=== PATIENT | male | born 1970 | race Caucasian/White ===

== ENCOUNTER → 2017-11-20 07:25 | Outpatient (CLI) | payer MEDICAID, SELFPAY | PROVIDERS: Visit Provider Psychiatry & Neurology Neurology | DX: R56.9 Unspecified convulsions (principal) | CPT/HCPCS: 70553; A9585 ==

== ENCOUNTER → 2017-11-22 07:20 | Outpatient (CLI) | payer MEDICAID, SELFPAY ==
--- NOTE | 2017-11-24 07:17 | EEG ---
- Electroencephalogram Date of service 11/22/2017 History EEG is being done in this 47 yr M to rule out seizures EEG Description: This is an 18 channel EEG with 10-20 lead placement system. Bipolar montages, Referential and Circumferential montages were reviewed. Photic stimulation and Hyperventilation were performed. The posterior dominant rhythm is 7 HZ synchronous, symmetric, reacting to eye opening and closing. Photo stimulation elicited normal driving response but no abnormal photoparoxysmal response, Hyperventilation did not elicit any abnormal photoparoxysmal response. Drowsiness was identified. There is generalized background slowing in the theta frequency noted. There was no epileptiform discharges or electrographic seizures noted during this recording. EEG Interpretation This is an abnormal EEG due to mild generalized slowing. This may be seen in generalized cerebral dysfunction like metabolic/toxic encephalopathy. Clinical correlation is advised. There is no epileptiform discharges or electrographic seizures noted during the record.
== END ==
PROVIDERS: Visit Provider Psychiatry & Neurology Neurology
DX: R56.9 Unspecified convulsions (principal)
CPT/HCPCS: 95819

== ENCOUNTER 2018-07-25 03:59 | Emergency (ER) | payer MEDICAID, SELFPAY ==
[2018-07-25 03:59] VITALS: BP 144/95; PULSE 86; RESP 12; TEMP 36.9; O2SAT 100; BMI 21.0
[2018-07-25] MEDS: Diphth,Pertuss(Acell),Tet Vac 0.5 ML Vial IM (04:21)
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
[2018-07-25 05:35] VITALS: RESP 16
[2018-07-25 05:45] VITALS: BP 139/88; PULSE 69; RESP 16; O2SAT 100
== END 2018-07-25 05:46 | disposition home or self-care (01) ==
PROVIDERS: Emergency Provider Emergency Medicine; Family Provider Family Medicine; PCP Family Medicine
DX: S21.112A Laceration without foreign body of left front wall of thorax without penetration into thoracic cavity, initial encounter (principal); W45.8XXA Other foreign body or object entering through skin, initial encounter; Y93.89 Activity, other specified; Y92.89 Other specified places as the place of occurrence of the external cause; Y99.9 Unspecified external cause status; Z72.0 Tobacco use
CPT/HCPCS: 12001; 71046; 90715; 99285

== ENCOUNTER 2018-08-04 10:02 | Emergency (ER) | payer MEDICAID, SELFPAY ==
[2018-08-04 10:03] VITALS: BP 158/87; PULSE 68; RESP 18; TEMP 36.6; O2SAT 100; BMI 21.9
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
--- NOTE | 2018-08-04 10:26 | ED.DEP ---
ED Disposition - Plan for ED Patient: Instructions: ED Wound Check Sutr Remove No Infec Referrals: Anselmo Henry MD [Primary Care Provider] -
== END 2018-08-04 10:44 | disposition home or self-care (01) ==
LOC: ED 10:25
PROVIDERS: Emergency Provider Emergency Medicine; Family Provider Family Medicine; PCP Family Medicine
DX: Z48.02 Encounter for removal of sutures (principal); Z72.0 Tobacco use
CPT/HCPCS: 99282

== ENCOUNTER 2019-11-16 07:26 | Emergency (ER) | payer MEDICAID, SELFPAY ==
[2019-11-16 07:27] VITALS: BP 97/80; PULSE 89; RESP 18; TEMP 36.7; O2SAT 97; BMI 20.3
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
[2019-11-16] MEDS: Silver Nitrate (BKC) 1 EACH TOPICAL (07:58)
== END 2019-11-16 08:12 | disposition home or self-care (01) ==
LOC: ED 08:07
PROVIDERS: Emergency Provider Emergency Medicine; PCP Family Medicine
DX: S61.203A Unspecified open wound of left middle finger without damage to nail, initial encounter (principal); F17.200 Nicotine dependence, unspecified, uncomplicated; W26.8XXA Contact with other sharp object(s), not elsewhere classified, initial encounter
CPT/HCPCS: 99284

== ENCOUNTER → 2020-01-06 | Outpatient (CLI) | payer MEDICAID, SELFPAY | END | disposition home or self-care (01) | LOC: MTDU 10:29 | PROVIDERS: PCP Family Medicine; Referring Provider Nurse Practitioner Family; Visit Provider Nurse Practitioner Family | DX: R05 Cough (principal); R06.02 Shortness of breath | CPT/HCPCS: 87635; C9803; U0003 ==

== ENCOUNTER 2020-08-18 23:04 | Emergency (ER) | payer MEDICAID, SELFPAY ==
[2020-06-07 10:17] VITALS: BMI 24.0
[2020-08-18 23:05] VITALS: BP 136/102; PULSE 106; RESP 18; TEMP 36.8; O2SAT 100; BMI 24.8
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
[2020-08-18 23:29] VITALS: O2SAT 100
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
[2020-08-18] MEDS: 0.9% Normal Saline 1,000 ML 1000 ML IV (23:36)
[2020-08-18 23:42] LABS: Absolute Lymphocyte Count 1.46 X10^3/uL (0.83-4.51); Absolute Neutrophil Count 8.1 X10^3/uL (2.0-7.7); Basophil# 0.07 X10^3/uL; Basophil% 0.7 % (0-1); Eosinophil# 0.11 X10^3/uL; Hematocrit 45.8 % (40-54); Hemoglobin 15.6 g/dL (13.0-16.5); Lymphocyte # 1.46 X10^3/ul (0.83-4.51); Lymphocyte % 13.6 % (19-41); Mean Corp Hgb Conc 34.1 g/dL (32-36); Mean Corpuscular Hgb 31.7 pg (27.0-32.0); Mean Corpuscular Volume 93.1 fL (80-94); Mean Platelet Vol. 10.6 fl (6.2-12.0); Monocyte% 8.4 % (0-10); NRBC Flagged by Analyzer 0 % (0-5); Neutrophil # 8.13 X10^3/uL (2.7-7.7); Neutrophil % 75.8 % (47-70); Platelet Count 325 K/mm3 (150-450); RBC Distribution Width CV 13.1 % (11.6-14.6); Red Blood Count 4.92 M/mm3 (4.6-6.2); White Blood Count 10.7 K/mm3 (4.4-11.0)
[2020-08-18 23:48] LABS: Partial Thromboplast Time 28.1 Seconds (24.1-36.2); Prothrombin Time (Protime)PT. 12.2 SECONDS (11.7-14.9)
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
[2020-08-18 23:56] LABS: ALB/GLOB Ratio 1.1 RATIO (0.9-2.4); AST(SGOT) 77 U/L (15-37); Alanine Aminotransfer ALT/SGPT 41 U/L (16-61); Albumin, Serum 4.8 g/dL (3.2-5.0); Alkaline Phosphatase 78 U/L (45-117); Anion Gap 9 (5-15); BUN 6 mg/dL (7-18); BUN/Creat Ratio 5.6 RATIO (10-20); Calcium,Total 8.7 mg/dL (8.5-10.1); Chloride 90 mmol/L (98-107); Creatinine, Serum 1.07 mg/dL (0.70-1.30); EST Glomerular Filtration Rate 78 mL/min (>60); Est Glom Filt Rate - Afr Amer 94 mL/min (>60); Estimated Creatinine Clearance 77.22 ml/min; Globulin 4.2 g/dL (2.2-4.2); Glucose 77 mg/dL (74-106); Potassium 3.1 mmol/L (3.5-5.1); Sodium Level 124 mmol/L (136-145)
[2020-08-19 00:15] VITALS: BP 123/80; PULSE 91; RESP 18; O2SAT 99
[2020-08-19 00:28] LABS: Amphetamine Urine VISTA POSITIVE (<1000 ng/mL); Barbiturate Urine VISTA NEGATIVE (< 200 ng/mL); Benzodiazepine Urine VISTA NEGATIVE (< 200 ng/mL); Cocaine Urine VISTA NEGATIVE (< 300 ng/mL); Ecstacy Urine VISTA NEGATIVE (< 500 ng/mL); Methadone Urine VISTA NEGATIVE (< 300 ng/mL); PCP Urine VISTA NEGATIVE (< 25 ng/mL); THC Urine VISTA NEGATIVE (< 50 ng/mL); Vista UDS pH Range 5
[2020-08-19 01:27] VITALS: BP 122/85; PULSE 106; RESP 16; O2SAT 99
[2020-08-19] MEDS: Lidocaine 1% (20 ml mdv) 20 ML Vial INFILT (01:34)
[2020-08-19] MEDS: Cefazolin 1 GM/50 ML BAG IV (01:34)
[2020-08-19 03:09] VITALS: BP 115/80; PULSE 102; RESP 18; O2SAT 99
[2020-08-19] MEDS: Lidocaine 1% /Epi 1:100 (20ml) 20 ML Vial INFILT (04:13)
[2020-08-19 04:26] VITALS: BP 110/76; PULSE 98; RESP 18; O2SAT 99
== END 2020-08-19 04:30 | disposition home or self-care (01) ==
PROVIDERS: Emergency Provider Emergency Medicine; PCP Family Medicine
DX: S31.119A Laceration without foreign body of abdominal wall, unspecified quadrant without penetration into peritoneal cavity, initial encounter (principal); F17.200 Nicotine dependence, unspecified, uncomplicated; F10.129 Alcohol abuse with intoxication, unspecified; X99.1XXA Assault by knife, initial encounter; Y93.89 Activity, other specified; Y92.89 Other specified places as the place of occurrence of the external cause; Y99.8 Other external cause status
CPT/HCPCS: 12002; 71045; 71260; 74177; 80053; 80307; 82077; 85025; 85610; 85730; 96361; 96365; 99285; J7050; Q9967

== ENCOUNTER 2020-08-29 07:55 | Emergency (ER) | payer MEDICAID, SELFPAY ==
[2020-08-29 07:56] VITALS: BP 129/73; PULSE 90; RESP 18; TEMP 36.6; O2SAT 99; BMI 22.8
[2020-08-29 07:58] VITALS: BP 129/73; PULSE 90; RESP 18; TEMP 36.6; O2SAT 99
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
== END 2020-08-29 08:48 | disposition home or self-care (01) ==
PROVIDERS: Emergency Provider Emergency Medicine; PCP Family Medicine
DX: S31.119D Laceration without foreign body of abdominal wall, unspecified quadrant without penetration into peritoneal cavity, subsequent encounter (principal); F17.200 Nicotine dependence, unspecified, uncomplicated; Z48.02 Encounter for removal of sutures; W45.8XXD Other foreign body or object entering through skin, subsequent encounter
CPT/HCPCS: 99282

== ENCOUNTER → 2020-09-08 11:03 | Outpatient (CLI) | payer MEDICAID, SELFPAY ==
[2020-08-29 07:56] VITALS: BMI 22.8
[2020-09-08 12:08] LABS: Hematocrit 40.2 % (40-54); Hemoglobin 13.6 g/dL (13.0-16.5); Mean Corp Hgb Conc 33.8 g/dL (32-36); Mean Corpuscular Hgb 32.1 pg (27.0-32.0); Mean Corpuscular Volume 94.8 fL (80-94); Platelet Count 242 K/mm3 (150-450); RBC Distribution Width CV 12.7 % (11.6-14.6); RBC Distribution Width SD 44.2 fl (35.1-43.9); Red Blood Count 4.24 M/mm3 (4.6-6.2); White Blood Count 8.7 K/mm3 (4.4-11.0)
[2020-09-08 12:40] LABS: ALB/GLOB Ratio 0.9 RATIO (0.9-2.4); AST(SGOT) 51 U/L (15-37); Alanine Aminotransfer ALT/SGPT 40 U/L (16-61); Albumin, Serum 3.7 g/dL (3.2-5.0); Alkaline Phosphatase 77 U/L (45-117); Anion Gap 10 (5-15); BUN 7 mg/dL (7-18); BUN/Creat Ratio 7.2 RATIO (10-20); Chloride 95 mmol/L (98-107); Creatinine, Serum 0.97 mg/dL (0.70-1.30); EST Glomerular Filtration Rate 87 mL/min (>60); Est Glom Filt Rate - Afr Amer 105 mL/min (>60); Globulin 4.1 g/dL (2.2-4.2); Glucose 121 mg/dL (74-106); Potassium 3.8 mmol/L (3.5-5.1); Protein, Total 7.8 g/dL (6.4-8.2); Sodium Level 132 mmol/L (136-145)
[2020-09-12 16:22] LABS: KEPPRA (LEVETIRACETAM) 27.2 ug/mL (10.0-40.0)
== END ==
PROVIDERS: Nurse Practitioner Family; PCP Family Medicine; Referring Provider Psychiatry & Neurology Neurology; Visit Provider Psychiatry & Neurology Neurology
DX: G40.909 Epilepsy, unspecified, not intractable, without status epilepticus (principal)
CPT/HCPCS: 36415; 80053; 80177; 82140; 85027

== ENCOUNTER 2021-04-10 05:53 | Outpatient (CLI) | payer MEDICAID, SELFPAY ==
--- NOTE | 2021-04-10 06:32 | TELEMED_ITS ---
[facility] Tele[facility] has confirmed receipt of a request for visit. This document confirms receipt of the order initiating the consult. To find the results of the consultation, please view the patient's reports for the scanned Telemed Consult.
== END 2021-04-10 23:59 | disposition home or self-care (01) ==
PROVIDERS: PCP Family Medicine; Referring Provider Nurse Practitioner Family; Visit Provider Nurse Practitioner Family
DX: G40.909 Epilepsy, unspecified, not intractable, without status epilepticus (principal)
CPT/HCPCS: 95819

== ENCOUNTER 2021-05-04 10:43 | Outpatient (CLI) | payer MEDICAID, SELFPAY ==
[2021-05-04 12:29] LABS: Hematocrit 47.1 % (40-54); Hemoglobin 15.6 g/dL (13.0-16.5); Mean Corp Hgb Conc 33.1 g/dL (32-36); Mean Corpuscular Hgb 31.8 pg (27.0-32.0); Mean Corpuscular Volume 95.9 fL (80-94); Mean Platelet Vol. 11.8 fl (6.2-12.0); Platelet Count 227 K/mm3 (150-450); RBC Distribution Width CV 12.6 % (11.6-14.6); RBC Distribution Width SD 45.1 fl (35.1-43.9); Red Blood Count 4.91 M/mm3 (4.6-6.2)
[2021-05-04 13:19] LABS: ALB/GLOB Ratio 0.9 RATIO (0.9-2.4); AST(SGOT) 19 U/L (15-37); Alanine Aminotransfer ALT/SGPT 17 U/L (16-61); Albumin, Serum 3.7 g/dL (3.2-5.0); Alkaline Phosphatase 65 U/L (45-117); Anion Gap 6 (5-15); BUN 14 mg/dL (7-18); BUN/Creat Ratio 12.3 RATIO (10-20); Chloride 101 mmol/L (98-107); Creatinine, Serum 1.14 mg/dL (0.70-1.30); EST Glomerular Filtration Rate 72 mL/min (>60); Est Glom Filt Rate - Afr Amer 87 mL/min (>60); Globulin 3.9 g/dL (2.2-4.2); Glucose 102 mg/dL (74-106); Magnesium 2.1 mg/dL (1.6-2.6); Potassium 4.3 mmol/L (3.5-5.1); Protein, Total 7.6 g/dL (6.4-8.2); Sodium Level 136 mmol/L (136-145)
[2021-05-09 10:14] LABS: KEPPRA (LEVETIRACETAM) 6.5 ug/mL (10.0-40.0)
== END 2021-05-04 23:59 | disposition short-term general hospital (02) ==
PROVIDERS: PCP Family Medicine; Referring Provider Nurse Practitioner Family; Visit Provider Nurse Practitioner Family
DX: G40.909 Epilepsy, unspecified, not intractable, without status epilepticus (principal)
CPT/HCPCS: 36415; 80053; 80177; 82140; 83735; 85027

== ENCOUNTER → 2021-09-21 | Outpatient (CLI) | payer MEDICAID, SELFPAY ==
[2021-09-26 14:59] LABS: KEPPRA (LEVETIRACETAM) <1.0 ug/mL (10.0-40.0)
== END | disposition home or self-care (01) ==
LOC: MTLAB 08:07
PROVIDERS: PCP Family Medicine; Referring Provider Nurse Practitioner Family; Visit Provider Nurse Practitioner Family
DX: G40.909 Epilepsy, unspecified, not intractable, without status epilepticus (principal)
CPT/HCPCS: 36415; 80177; 82140

== ENCOUNTER → 2021-10-31 | Outpatient (CLI) | payer MEDICAID, SELFPAY ==
[2021-11-03 19:52] LABS: KEPPRA (LEVETIRACETAM) 5.5 ug/mL (10.0-40.0)
== END | disposition home or self-care (01) ==
LOC: MTLAB 08:51
PROVIDERS: PCP Family Medicine; Referring Provider Nurse Practitioner Family; Visit Provider Nurse Practitioner Family
DX: G40.909 Epilepsy, unspecified, not intractable, without status epilepticus (principal)
CPT/HCPCS: 36415; 80177; 82140

== ENCOUNTER 2025-01-12 11:29 | Emergency (ER) | payer SELFPAY ==
[2025-01-12 11:30] VITALS: BP 152/114; PULSE 150; RESP 18; TEMP 36.5; O2SAT 96; BMI 21.6
--- NOTE | 2025-01-12 11:42 | ED.VIS.GI ---
HPI HPI - GI History of Present Illness Chief Complaint: GI Bleed Narrative Narrative: 54-year-old male presents with reported coffee-ground emesis, with perhaps some bright red blood/mucus in his vomit since Saturday. He states his symptoms started approximately 4 days ago. He did admit to drinking alcohol on Saturday. He states he does not take any blood thinners. He states he has a seizure disorder, but does not see a specialist any longer because he does not need to. He denies any other bleeding diathesis, no black stool. He states whenever he tries to drink even water, he will vomit. [facility] Medical History Unspecified intracranial injury with loss of consciousness of unspecified duration, sequela Epilepsy, unspecified, not intractable, without status epilepticus Seizure Home Medications ?Medication ?Instructions ?Recorded ?Last Taken ?Type levetiracetam 1,000 mg tablet 1,000 mg PO BID #60 tabs 11/23/22 Unknown Rx Allergy/AdvReac Type Severity Reaction Status Date / Time No Known Allergies Allergy Verified 01/12/25 11:34 Family History Father Heart disease Mother Diabetes Surgical History No history of previous surgery Social History Smoking Status: Current every day smoker tobacco type: cigarettes Tobacco: How many years used: 5 Electronic Cigarette Use: not used second hand exposure: No alcohol intake: current alcohol intake frequency: a few times a week Alcohol type: beer substance use type: does not use seatbelt use: always ROS ROS ED ROS Narrative Review of systems positive for nausea and vomiting, coffee-ground emesis, epigastric abdominal pain. No black stool. Does not take blood thinners. Does admit to drinking alcohol occasionally. EXAM Physical Exam Narrative Exam Narrative: Afebrile. Vital signs noted. Nontoxic-appearing. Cardiovascular examination reveals positive tachycardia. Lungs are clear to auscultation bilaterally. Abdomen is soft with tenderness in the epigastrium. Negative Sanchez sign. No rebound or guarding. Positive bowel sounds neurological examination nonfocal, nonlateralizing. Ambulatory in ED. Able to transfer from standing to cot. Const Vital Signs: 01/12/25 11:30 01/12/25 12:21 01/12/25 12:34 Temperature 97.7 F L 98.0 F Temperature Source Oral Oral Pulse Rate 150 H 138 H 139 H Respiratory Rate 18 12 22 H Blood Pressure 152/114 H 142/98 H 151/76 H Blood Pressure Mean 126 112 101 Pulse Ox 96 100 100 Oxygen Delivery Method Room Air Room Air 01/12/25 13:00 01/12/25 14:00 Temperature 98.2 F Temperature Source Oral Pulse Rate 140 H 138 H Respiratory Rate 20 H Blood Pressure 151/68 H 166/103 H Blood Pressure Mean 95 124 Pulse Ox 100 Oxygen Delivery Method Room Air MDM MDM MDM Narrative Medical decision making narrative: The differential diagnosis includes but not limited to gastritis with hemorrhage versus pancreatitis versus perforated ulcer versus gastroenteritis. Comprehensive workup was pursued. I discussed with the patient the possibility of having to insert nasogastric tube secondary to his reported hematemesis/coffee-ground emesis, but patient declines initially. Additionally, I was going to perform stool/rectal exam for fecal occult blood, but patient declines this as well. I reviewed his laboratory work and he has a leukocytosis of 18.1 with hemoglobin 16.2, hematocrit 47.7, platelet count normal at 298. Review of his CMP shows chloride low at 87 with a normal sodium of 135, potassium 4.6. Glucose 148, BUN of 28 and creatinine elevated 2.76. When compared to prior labs, his prior creatinine was normal at 1.14. This is consistent with dehydration and acute kidney injury. Patient had been bolused normal saline 1 L intravenously. He remains tachycardic, but this may be some degree of alcohol withdrawal as in review of his prior problem list he has been seen for alcohol intoxication. I do not feel that this is a sepsis. Glucose is elevated at 148 with anion gap elevated at 22. I do feel that this may be secondary to dehydration as well. Lipase normal at 16. Her sister is now present. While I was discussing admission with him and further testing, patient states that he is going to have a quart of wood delivered and does not want to be admitted. He wishes to sign out AGAINST MEDICAL ADVICE. I feel he has capacity to make this decision to sign out AGAINST MEDICAL ADVICE. He was told of the risk of kidney failure, need for dialysis, permanent disability, and associated with his renal failure and dehydration. Although he is flagging for sepsis, I do not feel that he has an infectious process currently. Patient still wishes to sign out AGAINST MEDICAL ADVICE. He was told that he can return to the emergency department at any time should he change his mind, but further testing/repeat testing may need to be performed. His sister is at the bedside, and currently is agreeable to take him home. He acknowledged an understanding. Disposition is signed out AGAINST MEDICAL ADVICE. Patient in stable condition. History & Record Review Discussion w/independent historian: Patient and Family Lab Data Attestation: I reviewed the patient's lab results. Labs: Laboratory Results - last 24 hr 01/12/25 11:45 WBC 18.1 H RBC 5.21 Hgb 16.2 Hct 47.7 MCV 91.6 MCH 31.1 MCHC 34.0 RDW Std Deviation 45.3 H RDW Coeff of Marco 13.4 Plt Count 298 MPV 10.9 Immature Gran % (Auto) 0.700 Neut % (Auto) 84.6 H Lymph % (Auto) 7.0 L Tate % (Auto) 7.5 Eos % (Auto) 0.0 Baso % (Auto) 0.2 Absolute Neuts (auto) 15.3 H Absolute Lymphs (auto) 1.27 Nucleated RBC % 0 Sodium 135 Potassium 4.6 Chloride 87 L Carbon Dioxide 25.4 Anion Gap 22 H BUN 28 H Creatinine 2.76 H Estim Creat Clear Calc 24.71 L Est GFR (MDRD) Non-Af 26 L BUN/Creatinine Ratio 10.0 Glucose 148 H Calcium 10.3 Total Bilirubin 0.83 AST 38 ALT 23 Alkaline Phosphatase 105 Total Protein 8.8 H Albumin 5.1 H Globulin 3.8 Albumin/Globulin Ratio 1.4 Lipase 16 Radiography Diagnostic Testing: Clinical Impression(s) from Imaging Studies Abdomen/Pelvis CT 01/12/25 11:45 IMPRESSION: Fatty infiltration of the liver. Sludge or small gallstones along the dependent portion the gallbladder lumen. Sigmoid diverticulosis. Diffuse bladder wall thickening. Loss of height of the superior endplate of the T12, L1 and L2 vertebrae. Reading Location: [id number] Discharge Plan Triage Chief Complaint: GI Bleed ED Provider: Mahendra Muñoz Dx/Rx/DC Orders Clinical Impression: Acute kidney injury, Left against medical advice, Dehydration, Leukocytosis, Tachycardia Instructions: Acute Kidney Failure Dc, ED About Arrhythmias, ED Dehydration (Adult) Prescriptions: No Action levetiracetam 1,000 mg tablet 1,000 mg PO BID Qty: 60 1RF Primary Care Provider: Anselmo Henry Referrals: Anselmo Henry MD [Primary Care Provider, [facility]] Print Language: Cuban Disposition Disposition: Against Medical Advice Discharge Date/Time: 01/12/25 15:01
--- NOTE | 2025-01-12 11:45 | CT_ITS ---
PROCEDURE: ABDOMEN/PELVIS W IV CONT ONLY 01/12/2025 REASON FOR EXAM: EPIGASTRIC PAIN Shortness of breath and fever. TECHNIQUE: Procedure Code: [id number] Modality: CT Procedure: ABDOMEN/PELVIS W IV CONT ONLY Coronal and Sagittal reconstruction series were provided. CONTRAST: Isovue-300 VOLUME: 100 mL One or more dose reduction techniques were used (e.g., Automated exposure control, adjustment of the mA and/or kV according to patient size, use of iterative reconstruction technique. RADIATION DOSE SUMMARY: CTDlvol: 9.75 mGy DLP: 395.82 mGycm COMPARISON: Prior study dated August 18, 2020. FINDINGS: Lung bases: Minimal linear scarring at the left lung base. Small hiatal hernia. Liver: Diffuse fatty infiltration. Gallbladder: Sludge or small gallstones along the dependent portion of the gallbladder lumen. Spleen: Normal size. Pancreas: Normal size without evidence of mass surrounding inflammation or ductal dilation. Adrenals: Unremarkable Kidneys: Normal renal sizes. No hydronephrosis. Bladder: Mild degree of diffuse bladder wall thickening. Bowel: Colonic diverticulosis without diverticulitis. Appendix: The appendix is not identified. There is no inflammatory process identified in the right lower quadrant to suggest appendicitis. Lymph nodes: No retroperitoneal lymph nodes are seen. Vasculature: Mild diffuse atherosclerotic calcifications are noted. Peritoneum / Retroperitoneum: Unremarkable Bones: Loss of height of the superior endplate of the T12, L1 and L2 vertebrae. This is new as compared to prior study. CT/Abdomen/Pelvis W IV Cont ONLY IMPRESSION: Fatty infiltration of the liver. Sludge or small gallstones along the dependent portion the gallbladder lumen. Sigmoid diverticulosis. Diffuse bladder wall thickening. Loss of height of the superior endplate of the T12, L1 and L2 vertebrae. Reading Location: [facility]
[2025-01-12 11:54] LABS: Hematocrit 47.7 % (40-54); Hemoglobin 16.2 g/dL (13.0-16.5); Immature Granulocytes Count 0.120 X10^3/uL (0.0-0.0); Mean Corp Hgb Conc 34.0 g/dL (32-36); Mean Corpuscular Volume 91.6 fL (80-94); Mean Platelet Vol. 10.9 fl (6.2-12.0); NRBC Flagged by Analyzer 0 % (0-5); Platelet Count 298 K/mm3 (150-450); RBC Distribution Width CV 13.4 % (11.6-14.6); RBC Distribution Width SD 45.3 fl (35.1-43.9); Red Blood Count 5.21 M/mm3 (4.6-6.2); White Blood Count 18.1 K/mm3 (4.4-11.0)
[2025-01-12] MEDS: 0.9% Normal Saline (1000mL) 1,000 ML 999 ML IV (12:13)
[2025-01-12 12:19] LABS: AST(SGOT) 38 U/L (<=37); Alanine Aminotransfer ALT/SGPT 23 U/L (<=46); Albumin, Serum 5.1 g/dL (3.5-5.0); Alkaline Phosphatase 105 U/L (40-129); Anion Gap 22 (5-15); BUN 28 mg/dL (4-19); BUN/Creat Ratio 10.0 RATIO (10-20); Calcium,Total 10.3 mg/dL (7.6-11.0); Carbon Dioxide 25.4 mmol/L (21.0-32.0); Chloride 87 mmol/L (98-108); Estimated Creatinine Clearance 24.71 ml/min (50-250); Globulin 3.8 g/dL (2.2-4.2); Glucose 148 mg/dL (70-99); Lipase 16 U/L (13-75); Potassium 4.6 mmol/L (3.3-5.1)
[2025-01-12 12:21] VITALS: BP 142/98; PULSE 138; RESP 12; TEMP 36.7; O2SAT 100
[2025-01-12 12:34] VITALS: BP 151/76; PULSE 139; RESP 22; O2SAT 100
[2025-01-12 13:00] VITALS: BP 151/68; PULSE 140
[2025-01-12 14:00] VITALS: BP 166/103; PULSE 138; RESP 20; TEMP 36.8; O2SAT 100
--- NOTE | 2025-01-12 14:51 | ED.RN ---
Pt. called this RN into room and stated that he wanted to leave AMA. He wanted to come back and get all the tests he needed done. This RN educated pt. that is was within his rights to leave but that I would need him to sign and AMA form. pt. agreed. Pt. also educated that if/when he does come back, we will likely do all new blood work, testing, evaluations. pt. verbalized understanding. Dr. Muñoz back to bedside and encouraged pt. go come back. AMA form signed. PIV removed.
--- NOTE | 2025-01-12 16:33 | CM.ED ---
Social Work SW met with patient and patients sister due to patient relaying to registration that he had not sent in the paperwork to have his insurance continue coverage. SW told patient that Hayde from [employer] would be coming to ED to help patient get re-enrolled. Patient thankful for same. Patient and sister also having a conversation in the room where patient was stating he was resistive to staying at the hospital and wanted to go home. Patients sister was encouraging patient to allow himself to be admitted so he could get medical attention. SW also encouraged patient to follow physicians recommendation for admission. Patient ultimately signed out AMA. SW spoke with Hayde who stated she was able to meet with patient prior to him leaving. Shandra Medina, SALES COUNSELOR, [employer]
== END 2025-01-12 15:01 | disposition left against medical advice (07) ==
PROVIDERS: Emergency Provider Emergency Medicine; PCP Family Medicine; Visit Provider Emergency Medicine
DX: N17.9 Acute kidney failure, unspecified (principal); D72.829 Elevated white blood cell count, unspecified; E86.0 Dehydration; F17.210 Nicotine dependence, cigarettes, uncomplicated; R11.2 Nausea with vomiting, unspecified; R00.0 Tachycardia, unspecified
CPT/HCPCS: 74177; 80053; 83690; 85025; 96361; 96374; 99283; Q9967; A4216; J2405